=== PATIENT | female | born 1955 | race Caucasian/White ===

== ENCOUNTER 2021-04-21 12:57 | Emergency (ER) | payer OTHER ==
[2021-04-21 13:30] VITALS: BP 111/74; PULSE 68
--- NOTE | 2021-04-21 13:48 | EDM.PDOC ---
ED HPI GENERAL MEDICAL PROBLEM - General Chief Complaint: Respiratory Problem Stated Complaint: COUGH/WEAK Time Seen by Provider: 04/21/21 13:30 Source of Information: Reports: Patient History Limitations: Reports: No Limitations - History of Present Illness INITIAL COMMENTS - FREE TEXT/NARRATIVE: 65-year-old female presents with 2-1/2 weeks of cough, intermittent fevers, significant fatigue and weakness. She has not been Covid vaccinated. No nausea or vomiting, no chest pain. Onset: Gradual Duration: Week(s): (2 to 3 weeks of symptoms) Associated Symptoms: Reports: Cough, Loss of Appetite, Malaise, Shortness of Breath, Weakness - Related Data Allergies Allergy/AdvReac Type Severity Reaction Status Date / Time No Known Allergies Allergy Verified 04/21/21 13:30 Home Meds: Home Meds Aspirin 81 mg PO DAILY 07/10/13 [History] Multivitamin [Multi-Vitamin Daily] 1 each PO DAILY 07/10/13 [History] Past Medical History HEENT History: Reports: Impaired Vision Cardiovascular History: Reports: Other (See Below) Other Cardiovascular History: varicose veins; denies DVT but has hx of superficial thrombophlebitis. 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 fx wrist knee - Infectious Disease History Infectious Disease History: Reports: Chicken Pox, Measles, Mumps - Past Surgical History Head Surgeries/Procedures: Reports: None HEENT Surgical History: Reports: Tonsillectomy Cardiovascular Surgical History: Reports: None GI Surgical History: Reports: Abdominal paracentesis Female Surgical History: Reports: Section Musculoskeletal Surgical History: Reports: Other (See Below) Other Musculoskeletal Surgeries/Procedures:: complete acl on right knee Dermatological Surgical History: Reports: None Social & Family History - Tobacco Use Tobacco Use Status *Q: Never Tobacco User Second Hand Smoke Exposure: No - Caffeine Use Caffeine Use: Reports: None - Recreational Drug Use Recreational Drug Use: No ED ROS GENERAL - Review of Systems Review Of Systems: See Below Constitutional: Reports: Malaise, Decreased Appetite. Denies: Fever, Chills HEENT: Denies: Rhinitis, Throat Pain Respiratory: Reports: Shortness of Breath, Cough. Denies: Sputum Cardiovascular: Denies: Chest Pain, Palpitations Endocrine: Reports: Fatigue GI/Abdominal: Denies: Nausea, Vomiting : Reports: No Symptoms Musculoskeletal: Reports: Muscle Pain (Generalized body aches) Skin: Denies: Rash Neurological: Reports: Dizziness, Weakness. Denies: Headache ED EXAM, GENERAL - Physical Exam Exam: See Below Exam Limited By: No Limitations General Appearance: Alert, No Apparent Distress, Other (Patient looks tired but not distressed) Eye Exam: Bilateral Eye: Normal Inspection Head: Atraumatic. No: Facial Swelling Neck: Non-Tender Respiratory/Chest: No Respiratory Distress, Other (Patient has a few basilar rhonchi but overall her lungs are very clear) Cardiovascular: Regular Rate, Rhythm. No: Tachycardia GI/Abdominal: Non-Tender Extremities: Normal Inspection Neurological: Alert, Oriented Psychiatric: Flat Affect (Appears tired) Skin Exam: Warm, Dry Course - Vital Signs Last Recorded V/S: Last Vital Signs Temp 98.0 F 04/21/21 13:30 Pulse 68 04/21/21 13:30 Resp 15 04/21/21 13:30 BP 111/74 04/21/21 13:30 Pulse Ox 96 04/21/21 13:30 - Orders/Labs/Meds Labs: Laboratory Tests 04/21/21 Range/Units 14:23 SARS-CoV-2 RNA (KIM) Positive H (NEGATIVE) - Re-Assessments/Exams Free Text/Narrative Re-Assessment/Exam: 04/21/21 16:35 Patient showed me the calendar of her symptoms, she has been sick for almost 3 weeks. This very likely is Covid, she is past the antibiotic window and her O2 saturations are 95 to 97% with shallow nonlabored respirations. She is afebrile. She is not dehydrated. A Covid test was done to confirm Covid prior to any further work-up. Covid was positive and this was explained to the patient that she is out of the window of treatment and will need to wait for her own immune system to take care of this illness. She can return if she becomes more short of breath or develops other concerning symptoms such as persistent chest pain or nausea or vomiting. Otherwise [id number] medications to cover symptoms as needed. Departure - Departure Time of Disposition: 15:28 Disposition: Home, Self-Care 01 Clinical Impression: COVID-19 - Discharge Information Instructions: COVID-19 Referrals: Jesus Manuel Davis MD [Primary Care Provider] - Forms: ED Department Discharge Care Plan Goals: Rest, fluids, [id number] medications for cough and body aches may be helpful. Increase activity as tolerated and return if worsening such as difficulty breathing due to lack of oxygen. Sepsis Event Note (ED) - Focused Exam Vital Signs: Vital Signs Temp Pulse Resp BP Pulse Ox 04/21/21 13:30 98.0 F 68 15 111/74 96 04/21/21 13:28 98.0 F 68 15 111/74 96
== END 2021-04-21 15:28 | disposition home or self-care (01) ==
LOC: JP.ED 12:57
DX: U07.1 COVID-19 (principal); Z79.82 Long term (current) use of aspirin
CPT/HCPCS: 99284; U0002